=== PATIENT | male | born 1945 | race Caucasian/White ===

== ENCOUNTER 2017-05-08 03:06 | Inpatient (IN) ==
--- NOTE | 2017-05-08 04:36 | Emergency Department Note ---
Arrival - Arrival Chief Complaint: Shortness of Breath Stated Complaint: SOB ED Nursing Triage Note: Patient to ED via EMS as a transfer from [facility] ED. Patient was seen there for c/o SOB for 2 days time. Patient has COPD and has recently tried to quit smoking again, when his s/s worsened. Patient arrives to our ED with a RA sat of 88% and after placing patient in orthopneic position and applying 3L O2 NC, patient sats increased to 97% Mode of Arrival: Stretcher Time Seen by Provider: 05/08/17 03:50 - History of Present Illness HPI Narrative: This is a 71-year-old white male who presents from [facility] emergency department with COPD exacerbation. His initial room air O2 sat was 80%. The patient does not have nasal O2 at home. He has noticed worsening shortness of breath for the past 3 days. The chest x-ray did not show pneumonia. He does have a history of a slightly abnormal echocardiogram with a left ventricular ejection fraction of 45% done in February 2017. He stopped smoking 2 days ago. He was treated with intravenous steroids and multiple albuterol nebulizer treatments. The patient is comfortable at this time. He was accepted in transfer for admission to the hospital for COPD exacerbation. Allergies/Adverse Reactions: Allergies Allergy/AdvReac Type Severity Reaction Status Date / Time codeine Allergy RASH Verified 05/08/17 03:28 NO MRI AdvReac Unknown/Unable Uncoded 05/08/17 03:39 to obtain Review of System - Review of System Constitutional: Absent: fever, night sweats Eyes: Absent: redness, vision change Head/Ears/Nose/Throat: Absent: epistaxis Respiratory: Present: respiratory distress, wheezing Cardiovascular: Present: dyspnea on exertion. Absent: orthopnea, edema Gastrointestinal: Absent: diarrhea, constipation, hematemesis, melena Genitourinary male: Absent: hematuria, discharge Musculoskeletal: Absent: joint swelling, lower back pain Skin: Absent: change in color, change in hair/nails Neurological: Absent: numbness, paresthesias Psychiatric: Absent: suicidal thoughts, homicidal thoughts Endocrine: Absent: heat intolerance, polydipsia, polyuria Hematological/Lymphatic: Absent: easy bruising, lymphadenopathy Allergic/Immunologic: Absent: urticaria, itchy eyes Medical,Surgical,& Family Hx - Medical History Respiratory: History of: Bronchitis, COPD Musculoskeletal: History of: Musculoskeletal Problems (bone spurs) Other: History of: Miscellaneous Medical Problems (NO MRI r/t hammer piece in RLQ ABD) - Social History Smoking Status: Current every day smoker Frequency of Alcohol Use: None Type of Drug Use: None Exam Vital Signs: Vital Signs Temperature 98.6 F 05/08/17 03:06 Pulse Rate 99 H 05/08/17 03:06 Respiratory Rate 28 H 05/08/17 03:06 Blood Pressure 129/68 05/08/17 03:06 O2 Sat by Pulse Oximetry 89 L 05/08/17 03:06 - General Exam limited due to: ALOC - Head Head exam: Present: atraumatic - Eye Eye exam: Present: PERRL, EOMI - ENT ENT exam: Present: normal exam, normal oropharynx - Neck Neck exam: Present: normal inspection, full ROM - Chest Chest inspection: Present: normal inspection, symmetric chest wall rise - Respiratory Respiratory exam: Present: normal lung sounds bilaterally, prolonged expiratory phase, wheezes - Cardiovascular Cardiovascular exam: Present: regular rate, normal rhythm - Abdominal Exam Abdominal exam: Present: soft, normal bowel sounds - Extremities Exam Extremities exam: Present: normal inspection, full ROM - Back Exam Back exam: Present: normal inspection, full ROM - Neurological Exam Neurological exam: Present: alert, oriented X3 - Psychiatric Psychiatric exam: Present: normal affect, normal mood - Skin Skin exam: Present: warm, dry Course Course Narrative: The patient was sent from [facility] emergency department for COPD exacerbation. He is considerably better at this time but he has been accepted already for admission to the hospital and has an O2 requirement. The patient will be admitted by the hospitalist service with whom the case was discussed. Disposition Clinical Impression: COPD exacerbation Disposition: Still a Patient Additional Instructions: The patient was accepted from [facility] emergency department for COPD exacerbation. His original presenting O2 sat was 88%. He does not have oxygen at home. He stopped smoking 2 days ago. The patient's chest x-ray showed no infiltrate. He was treated with intravenous corticosteroids and albuterol. His vital signs are now stable. His O2 sat is 97% on 2 L nasal. He is breathing comfortably with a respiratory rate of 18. The case was discussed with the hospitalist who agreed to admit the patient.
--- NOTE | 2017-05-08 05:36 | Hospitalist History & Physical ---
Assessment and Plan - Time spent with patient Time spent with patient: Greater than 30 minutes Time spent discussing smoking cessation with patient: 3 to 10 minutes (1) COPD exacerbation Status: Acute Assessment and plan: Will consult Pulm Will start on breathing treatments and steroids Afebrile this time Continue oxygen at this time. Current Visit: Yes History of Present Illness Chief complaint: shortness of breath History of present illness: Called to the ER for Mr. Stark who is a 71 year old male who presented to [facility] Emergency Dept in [place], [place] with complaints of shortness of breath that started yesterday and continued to get worse today. Patient states he got home from approximately 2029 and took two breathing treatments. He attempted to lie down to sleep but was not able to breath while lying down. Patient states he has been coughing up clear sputum that is not common for him. He states he entire chest is sore from coughing but denies fever, n/v/d. He does not wear home O2 and attempted to quit smoking two days ago. 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 Chin 2 days ago and received a steroid shot and started on Medrol Dose Pack. Patient will be admitted into observation due to no breathing treatments in ER. Can upgrade to inpatient if needed. He will receive Albuterol breathing treatments q4 hours and Solumedrol 125mg IV BID. We will consult pulmonary to follow. Lab work and CXR pending. Patient has a history of COPD with PFT's performed 2 days ago, bone spurs to right heel, hemorrhoid surgery x2, and removal of metal in abdomen. Allergies Allergy/AdvReac Type Severity Reaction Status Date / Time codeine Allergy RASH Verified 05/08/17 03:28 NO MRI AdvReac Unknown/Unable Uncoded 05/08/17 03:39 to obtain Medical,Surgical,& Family Hx - Medical History Respiratory: History of: Bronchitis, COPD Musculoskeletal: History of: Musculoskeletal Problems (bone spurs) Other: History of: Miscellaneous Medical Problems (NO MRI r/t hammer piece in RLQ ABD) - Family History Family History: noncontributory (Patient was raised in an [place]ph[place].) - Social History Smoking Status: Current every day smoker Frequency of Alcohol Use: None Type of Drug Use: None - Constitutional Constitutional: Absent: anorexia, chills, fever(s), weakness - EENT Eyes: Absent: blurry vision - Cardiovascular Cardiovascular: Absent: chest pain at rest, chest pain with activity, diaphoresis, dyspnea, edema - Respiratory Respiratory: Present: cough, dyspnea. Absent: change in phlegm color - Gastrointestinal Gastrointestinal: Absent: abdominal pain, constipation, diarrhea, nausea, vomiting - Genitourinary Genitourinary: Absent: difficulty urinating Exam - Constitutional Vitals: Period Temp Pulse Resp BP Sys/Almanza Pulse Ox Last 24 Hr 98.6 F-98.6 F 82-99 16-28 122-129/60-68 89-98 General appearance: mild distress, under weight - Head Head exam: Present: normal inspection, normocephalic - Eye Eye exam: Present: EOMI Pupils: Present: JUAN, normal accommodation - ENT ENT exam: Present: normal external ear exam - Neck Neck exam: Present: normal inspection - Respiratory Respiratory exam: Present: chest wall tenderness, rhonchi (to bilateral lower bases. Respirations even and non-labored. Symmetrical rise and fall of chest noted ). Absent: accessory muscle use, decreased breath sounds - Cardiovascular Cardiovascular exam: Present: regular rate and rhythm - GI/Abdominal GI/Abdominal exam: Present: normal bowel sounds, soft. Absent: firm, tenderness - Extremities Exam Extremities exam: Present: normal capillary refill, full ROM, other (multiple bruises) - Back Exam Back exam: Present: normal inspection - Neurological Exam Neurological exam: Present: alert, oriented X3 (Respirations even and non- labored. Symmetrical rise and fall of chest noted. ) - Psychiatric Psychiatric exam: Present: normal affect - Skin Skin exam: Present: normal color, warm, dry
[2017-05-08] MEDS ORDERED: methylPREDNISolone SOD SUC 125 MG/2 ML VIAL IV SCH (06:00)
[2017-05-08] MEDS ORDERED: NICOTINE 21 MG/24 HR PATCH TRANSDERM PRN (06:05)
[2017-05-08] MEDS ORDERED: ONDANSETRON 4 MG/2 ML VIAL IV PRN (06:05)
[2017-05-08] MEDS ORDERED: ACETAMINOPHEN 325 MG TABLET PO PRN (06:05)
[2017-05-08] MEDS ORDERED: SODIUM CHLORIDE 0.9% 1,000 ML IV SCH (06:05)
[2017-05-08] MEDS ORDERED: AZITHROMYCIN 250 MG TABLET PO ONE (06:49)
[2017-05-08] MEDS ORDERED: ALBUTEROL/IPRATROPIUM 3 ML NEB RESP TX SCH (07:00)
[2017-05-08 07:16] LABS: Basophils % 0.1 % (0.0-0.8); Hematocrit 47.5 VOL% (42.0-52.0); Hemoglobin 16.3 GM/DL (14.0-18.0); Immature Granulocytes % 0.4 %; Immature Granulocytes Absolute 0.04 #; Lymphocytes # 0.4 10*3/uL (1.4-4.0); Lymphocytes % 4.3 % (21.2-54.2); Mean Corpuscular HGB Conc 34.3 GM/DL (32-36); Mean Corpuscular Hemoglobin 33 PG (27-34); Mean Corpuscular Volume 95.4 FL (87-102); Mean Platelet Volume 9.6 FL (9.6-12.0); Monocytes # 0.1 10*3/uL (0.11-0.8); Monocytes % 1.5 % (1.7-12.7); Neutrophils # 8.3 10*3/uL (1.4-7.4); Neutrophils % 93.7 % (38.7-73.9); Platelet Count 174 T/CUMM (130-400); Red Blood Count 4.98 MC/CUMM (3.8-5.5); White Blood Count 8.9 T/CUMM (4-12)
[2017-05-08 07:44] LABS: Band Neutrophils 2 % (0-10); Hypochromasia 1+; Lymphocytes 4 % (20-55); Segmented Neutrophils 92 % (50-85); Total Cells Counted 100
[2017-05-08 07:45] LABS: Platelet Estimate Adequate
[2017-05-08 07:55] LABS: Albumin 4.1 G/DL (3.4-5.0); Bilirubin,Total 1.3 MG/DL (0.2-1.0); Calcium 9.3 MG/DL (8.5-10.1); Osmolality,Calculated 282.7 MOS/KG (273-304); Potassium 4.3 MMOL/L (3.5-5.1); Total Protein 7.1 G/DL (6.4-8.3)
[2017-05-08] MEDS: cefTRIAXone 1,000 MG in SODIUM CHLORIDE 0.9% 100 ML IV SCH (10:38)
[2017-05-08] MEDS: PANTOPRAZOLE 40 MG TABLET PO SCH (10:38)
[2017-05-08] MEDS: ENOXAPARIN 40 MG/0.4 ML SYRINGE SUBCUT SCH (10:45)
--- NOTE | 2017-05-08 10:51 | Pulmonology Consult Note ---
Assessment and Plan (1) Smoker Status: Acute Assessment and plan: We will try nicotine patch and he certainly needs to quit smoking. Current Visit: Yes (2) COPD exacerbation Status: Acute Assessment and plan: Patient looks like he has fairly significant COPD and will continue with vigorous treatment. Current Visit: Yes History of Present Illness Chief complaint: Shortness of breath History of present illness: Mr. Stark is a 71 year old white male that was sent over from [facility] in [place] because of worsening shortness of breath. The patient says he has been having more trouble last several days. He apparently has a long history of having COPD and is followed by Dr. Chin. He says he uses an inhaler at home. He does not have oxygen. He is a lifelong smoker but he says he quit a week ago. He says he is mainly just been short of breath but does cough up some sputum. He is not having any fever or chest pain. He says a couple days ago he got a steroid injection and a Medrol Dosepak at Dr. Chin's office. He said his breathing was getting worse so he came in. Allergies Allergy/AdvReac Type Severity Reaction Status Date / Time codeine Allergy RASH Verified 05/08/17 03:28 NO MRI AdvReac Unknown/Unable Uncoded 05/08/17 03:39 to obtain - Constitutional Constitutional: Present: weakness. Absent: chills, fever(s) - EENT Eyes: Absent: loss of vision Ears: Absent: decreased hearing Nose, mouth and throat: Absent: dysphagia, headache(s), sinus pressure - Cardiovascular Cardiovascular: Present: dyspnea. Absent: chest pain at rest, edema, orthopnea - Respiratory Respiratory: Present: cough, dyspnea, wheezing, change in phlegm color. Absent : hemoptysis - Gastrointestinal Gastrointestinal: Absent: abdominal pain, change in bowel habits, dysphagia, nausea, vomiting - Genitourinary Genitourinary: Absent: difficulty urinating, dysuria, urinary frequency - Musculoskeletal Musculoskeletal: Absent: arthralgias, myalgias - Neurological Neurological: Absent: abnormal speech, focal weakness, paresthesias - Psychiatric Psychiatric: Present: anxiety Exam (Pulmonay) H&P - Constitutional Vitals: Period Temp Pulse Resp BP Sys/Almanza Pulse Ox Last 24 Hr 97.3 F-98.6 F 82-99 16-28 122-137/60-78 89-98 General appearance: mild distress (He is quite short of breath at rest.), under weight - Head Head exam: Present: normal inspection, normocephalic - Eye Eye exam: Present: EOMI. Absent: scleral icterus Pupils: Present: JUAN - ENT ENT exam: Present: normal exam - Neck Neck exam: Present: normal inspection. Absent: lymphadenopathy, thyromegaly - Respiratory Respiratory exam: Present: decreased breath sounds, prolonged expiratory phase, wheezes - Cardiovascular Cardiovascular exam: Present: regular rate and rhythm. Absent: gallop, systolic murmur - GI/Abdominal GI/Abdominal exam: Present: normal bowel sounds, soft. Absent: distended, organomegaly, tenderness - Extremities Exam Extremities exam: Present: other (There is no clubbing). Absent: calf tenderness, edema - Neurological Exam Neurological exam: Present: alert, oriented X3, CN II-XII intact - Psychiatric Psychiatric exam: Present: anxious - Skin Skin exam: Present: warm, dry Medical,Surgical,& Family Hx - Medical History Respiratory: History of: Bronchitis, COPD Gastrointestinal: History of: Hemorrhoids Musculoskeletal: History of: Back/Neck Problems, Musculoskeletal Problems (bone spurs) Other: History of: Miscellaneous Medical Problems (NO MRI r/t hammer piece in RLQ ABD) - Surgical History Thoracic Surgeries: Patient denies;: Organ Transplant Neurologic Surgeries: Patient denies: Neurologic Surgery HEENT Surgeries: Patient denies: Eye Surgery, Thyroid Surgery, Tonsilectomy & Adenoidectomy Abdominal Surgeries: Patient denies: Abdominal Surgery - Social History Smoking Status: Current every day smoker Frequency of Alcohol Use: None Type of Drug Use: None Results - Labs CBC & BMP: 05/08/17 06:48 05/08/17 06:49 - Diagnostic Findings Procedure: Chest x-ray: image reviewed by me, report reviewed by me (Chest x- ray shows severe COPD changes but no infiltrates.)
[2017-05-08] MEDS: ALBUTEROL/IPRATROPIUM 3 ML NEB RESP TX SCH ×4 (11:18→23:30)
[2017-05-08] MEDS: NICOTINE 21 MG/24 HR PATCH TRANSDERM SCH (11:44)
[2017-05-08] MEDS: methylPREDNISolone SOD SUC 40 MG/1 ML VIAL IV SCH ×3 (11:49→22:55)
[2017-05-08] MEDS: buPROPion SR 150 MG TABLET PO SCH (11:49)
--- NOTE | 2017-05-08 12:23 | Event Note ---
71-year-old white male with history of tobacco abuse and COPD admitted by the hospitalist service on 05/08/2017 with COPD exacerbation. He has been started on breathing treatments, steroids, and IV antibiotics. Dr. Brambila has been consulted for Dr. Chin. Patient continues to be extremely short of breath especially when oxygen is removed. Will consult social workers for need for home oxygen. Patient also started on nicotine patch and Wellbutrin for tobacco cessation. Patient is eating and drinking well so will DC IV fluids and INT IV. Dr. Patel will see and examine patient and further recommendations to follow.
--- NOTE | 2017-05-08 14:28 | XRay Report ---
History: Shortness of breath Date: 05/08/2017 Study: Chest x-ray PA and lateral Comparison exam: No remote chest x-ray available for comparison The cardiac silhouette is not enlarged. There is no mediastinal mass. The pulmonary vasculature is not engorged. The lungs are slightly hyperexpanded as can be seen with COPD. There are scattered emphysematous changes. There is no gross pleural effusion. Osseous structures are unchanged. There is osteopenia and mild thoracic spondylosis. Impression: The lungs are slightly hyperexpanded as can be seen with COPD. Emphysematous changes. No acute process otherwise PROCEDURE INTERPRETED AT [facility] DEPARTMENT OF RADIOLOGY Final Report Signed by: Dr. Dorota Toure
[2017-05-08] MEDS: CELECOXIB 200 MG CAPSULE PO SCH (21:32)
[2017-05-08] MEDS: THEOPHYLLINE ER (24 HR) 300 MG CAPSULE PO SCH (21:32)
[2017-05-08] MEDS: MONTELUKAST 10 MG TABLET PO SCH (21:33)
[2017-05-09] MEDS: ALBUTEROL/IPRATROPIUM 3 ML NEB RESP TX SCH ×6 (03:58→23:47)
[2017-05-09] MEDS: methylPREDNISolone SOD SUC 40 MG/1 ML VIAL IV SCH ×4 (04:47→22:57)
[2017-05-09] MEDS: cefTRIAXone 1,000 MG in SODIUM CHLORIDE 0.9% 100 ML IV SCH (06:04)
[2017-05-09] MEDS: TAMSULOSIN 0.4 MG CAPSULE PO SCH (09:56)
[2017-05-09] MEDS: ENOXAPARIN 40 MG/0.4 ML SYRINGE SUBCUT SCH (09:56)
[2017-05-09] MEDS: CELECOXIB 200 MG CAPSULE PO SCH ×2 (09:56→20:34)
[2017-05-09] MEDS: PRAMIPEXOLE 0.25 MG TABLET PO SCH (09:57)
[2017-05-09] MEDS: NICOTINE 21 MG/24 HR PATCH TRANSDERM SCH (09:58)
[2017-05-09] MEDS: buPROPion SR 150 MG TABLET PO SCH (09:58)
[2017-05-09] MEDS: PANTOPRAZOLE 40 MG TABLET PO SCH (09:58)
[2017-05-09] MEDS: AZITHROMYCIN 250 MG TABLET PO SCH (09:59)
--- NOTE | 2017-05-09 10:25 | Pulmonology Progress Note ---
Pulmonary - PN: Subj Interval history: The patient is a 71-year-old white man that has very severe COPD. He basically has been smoking up until this hospitalization. He has been getting respiratory therapy and steroids and says he feels a little better today. He is comfortable on oxygen and he feels like his breathing is better today. He is eating well and tolerating his medicines . Overall he seems to be comfortable today. Exam (Progress Note) - Constitutional Vitals: Period Temp Pulse Resp BP Sys/Almanza Pulse Ox Last 24 Hr 97.2 F-98.1 F 70-109 16-22 116-139/63-75 90-100 Exam: General appearance: no distress (He is sitting up and looks more comfortable and appears stable.), under weight - Head Head exam: Present: normal inspection, normocephalic - Eye Eye exam: Present: EOMI. Absent: scleral icterus Pupils: Present: JUAN - ENT ENT exam: Present: normal exam - Neck Neck exam: Present: normal inspection. Absent: lymphadenopathy, thyromegaly - Respiratory Respiratory exam: Present: He does have very distant breath sounds with prolonged expiration but not much wheezing at present. - Cardiovascular Cardiovascular exam: Present: regular rate and rhythm. Absent: gallop, systolic murmur - GI/Abdominal GI/Abdominal exam: Present: normal bowel sounds, soft. Absent: distended, organomegaly, tenderness - Extremities Exam Extremities exam: Present: other (There is no clubbing). Absent: calf tenderness, edema - Neurological Exam Neurological exam: Present: alert, oriented X3, CN II-XII intact - Psychiatric Psychiatric exam: Present: anxious - Skin Skin exam: Present: warm, dry Results - Labs CBC & BMP: 05/08/17 06:48 05/08/17 06:49 Assessment and Plan (1) Smoker Status: Acute Assessment and plan: We will try nicotine patch and he certainly needs to quit smoking. He is trying a nicotine patch. Current Visit: Yes (2) COPD exacerbation Status: Acute Assessment and plan: Patient looks like he has fairly significant COPD and will continue with vigorous treatment. He is responding fairly well and looks like he is breathing a little better today. Current Visit: Yes
--- NOTE | 2017-05-09 11:36 | Hospitalist Progress Note ---
Assessment and Plan - Time spent with patient Time spent with patient: Less than 30 minutes (1) COPD exacerbation Status: Acute Assessment and plan: 71-year-old white male with history of tobacco abuse admitted by the hospitalist service on 05/08/2017 with COPD exacerbation. Patient has been started on nicotine patch and Wellbutrin to help with his tobacco cessation. He has been receiving steroids and breathing treatments. He feels mildly better today. I am having the nurses check his O2 sats on room air to see if he qualifies for home oxygen upon discharge. Continue with current treatment another day or 2 before DC. Discussed with Dr. Patel. Current Visit: Yes (2) Smoker Status: Acute Current Visit: Yes Hospitalist: Subjective Interval history: Patient states he feels mildly better today. He still gets short of breath easy with activity. They have not checked his O2 sats on room air yet to see if he will qualify for home oxygen. Exam - Constitutional Vitals: Period Temp Pulse Resp BP Sys/Almanza Pulse Ox Last 24 Hr 97.2 F-98.1 F 70-109 16-22 116-139/63-75 90-100 Exam: 71-year-old white male, no acute distress, alert and oriented Chest clear CV regular rate and rhythm Abdomen soft and nontender Extremities no edema Results - Labs CBC & BMP: 05/08/17 06:48 05/08/17 06:49 Lab Results: I have reviewed the past 24 hour labs
[2017-05-09] MEDS: THEOPHYLLINE ER (24 HR) 300 MG CAPSULE PO SCH (20:33)
[2017-05-09] MEDS: MONTELUKAST 10 MG TABLET PO SCH (20:34)
[2017-05-10] MEDS: ALBUTEROL/IPRATROPIUM 3 ML NEB RESP TX SCH ×6 (03:47→23:20)
[2017-05-10] MEDS: methylPREDNISolone SOD SUC 40 MG/1 ML VIAL IV SCH ×4 (04:08→22:37)
[2017-05-10] MEDS: cefTRIAXone 1,000 MG in SODIUM CHLORIDE 0.9% 100 ML IV SCH (06:03)
--- NOTE | 2017-05-10 09:23 | Pulmonology Progress Note ---
Pulmonary - PN: Subj Interval history: The patient is a 71-year-old white man that has very severe COPD. He basically has been smoking up until this hospitalization. He has been getting respiratory therapy and steroids and says he feels a little better today. He is comfortable on oxygen and he feels like his breathing is better today. He still has a difficult time clearing secretions. He feels like he is breathing better however. He says he wants to go home soon. Exam (Progress Note) - Constitutional Vitals: Period Temp Pulse Resp BP Sys/Almanza Pulse Ox Last 24 Hr 97.6 F-98.3 F 60-107 16-20 106-144/57-79 87-99 Exam: General appearance: no distress (He is sitting up and looks more comfortable and appears stable. He is moving around a little better.), under weight - Head Head exam: Present: normal inspection, normocephalic - Eye Eye exam: Present: EOMI. Absent: scleral icterus Pupils: Present: JUAN - ENT ENT exam: Present: normal exam - Neck Neck exam: Present: normal inspection. Absent: lymphadenopathy, thyromegaly - Respiratory Respiratory exam: Present: He does have very distant breath sounds with prolonged expiration but he is moving air a little better and starting to have a little bit more wheeze. He does seem to be opening up better. - Cardiovascular Cardiovascular exam: Present: regular rate and rhythm. Absent: gallop, systolic murmur - GI/Abdominal GI/Abdominal exam: Present: normal bowel sounds, soft. Absent: distended, organomegaly, tenderness - Extremities Exam Extremities exam: Present: other (There is no clubbing). Absent: calf tenderness, edema - Neurological Exam Neurological exam: Present: alert, oriented X3, CN II-XII intact - Psychiatric Psychiatric exam: Present: anxious - Skin Skin exam: Present: warm, dry Results - Labs CBC & BMP: 05/08/17 06:48 05/08/17 06:49 Assessment and Plan (1) Smoker Status: Acute Assessment and plan: We will try nicotine patch and he certainly needs to quit smoking. He is trying a nicotine patch. Current Visit: Yes (2) COPD exacerbation Status: Acute Assessment and plan: Patient looks like he has fairly significant COPD and will continue with vigorous treatment. He is responding fairly well and looks like he is breathing a little better today. He still has significant airflow obstruction and will get a little better with time. He wants to go home soon. He can probably go any time he feels comfortable. He will need steroids and bronchodilator therapy at home. Current Visit: Yes
[2017-05-10] MEDS: PRAMIPEXOLE 0.25 MG TABLET PO SCH (09:29)
[2017-05-10] MEDS: PANTOPRAZOLE 40 MG TABLET PO SCH (09:29)
[2017-05-10] MEDS: buPROPion SR 150 MG TABLET PO SCH (09:29)
[2017-05-10] MEDS: NICOTINE 21 MG/24 HR PATCH TRANSDERM SCH (09:29)
[2017-05-10] MEDS: ENOXAPARIN 40 MG/0.4 ML SYRINGE SUBCUT SCH (09:29)
[2017-05-10] MEDS: AZITHROMYCIN 250 MG TABLET PO SCH (09:29)
[2017-05-10] MEDS: CELECOXIB 200 MG CAPSULE PO SCH ×2 (09:29→20:43)
[2017-05-10] MEDS: TAMSULOSIN 0.4 MG CAPSULE PO SCH (09:29)
--- NOTE | 2017-05-10 14:53 | Hospitalist Progress Note ---
Hospitalist: Subjective Interval history: 71 yo male with severe COPD, he has dyspnea on exertion. Exam - Constitutional Vitals: Period Temp Pulse Resp BP Sys/Almanza Pulse Ox Last 24 Hr 97.6 F-98.3 F 60-107 16-20 122-144/67-92 91-99 Exam: General: [No Acute Distress] HEENT: [Normocephalic, atraumatic, Extra ocular movements intact] Neck: [Supple, No JVD] Chest: [Decreased breath sounds b/L] CV: [S1 + S2 audible without murmur, gallop or rub] Abd: [soft, NT, Non-distended, BS +] Ext: [No edema] Skin: [No purpura, bruising or rash] Rheumatologic: [No Joint deformities] Neurologic: [Strength 5/5 all extremities, no gross sensory deficits] Results - Labs CBC & BMP: 05/08/17 06:48 05/08/17 06:49 - Impressions Assessment and Plan (1) Acute on chronic COPD exacerbation due to acute bronchitis Status: Acute Assessment and plan: He is slowly improving with bronchodilators and steroids. He is doing quite well on nicotine patch and Wellbutrin for smoking cessation. (2) Acute on chronic hypoxemic respiratory failure Status: Acute Current Visit: Yes Continue oxygen, and so stroke is arranging home O2
[2017-05-10] MEDS: THEOPHYLLINE ER (24 HR) 300 MG CAPSULE PO SCH (20:43)
[2017-05-10] MEDS: MONTELUKAST 10 MG TABLET PO SCH (20:43)
[2017-05-11] MEDS: ALBUTEROL/IPRATROPIUM 3 ML NEB RESP TX SCH ×2 (03:20→07:35)
[2017-05-11] MEDS: methylPREDNISolone SOD SUC 40 MG/1 ML VIAL IV SCH (05:59)
[2017-05-11] MEDS: cefTRIAXone 1,000 MG in SODIUM CHLORIDE 0.9% 100 ML IV SCH (06:01)
[2017-05-11] MEDS: NICOTINE 21 MG/24 HR PATCH TRANSDERM SCH (08:49)
[2017-05-11] MEDS: CELECOXIB 200 MG CAPSULE PO SCH (09:03)
[2017-05-11] MEDS: AZITHROMYCIN 250 MG TABLET PO SCH (09:03)
[2017-05-11] MEDS: TAMSULOSIN 0.4 MG CAPSULE PO SCH (09:03)
[2017-05-11] MEDS: buPROPion SR 150 MG TABLET PO SCH (09:03)
[2017-05-11] MEDS: PRAMIPEXOLE 0.25 MG TABLET PO SCH (09:03)
[2017-05-11] MEDS: ENOXAPARIN 40 MG/0.4 ML SYRINGE SUBCUT SCH (09:03)
[2017-05-11] MEDS: PANTOPRAZOLE 40 MG TABLET PO SCH (09:03)
[2017-05-11] MEDS ORDERED: predniSONE 20 MG TABLET PO SCH (09:30)
--- NOTE | 2017-05-11 10:44 | Discharge Summary ---
Hospital Course - Hospital Course Hospital Course: 71 year old male who presented to [facility] Emergency Dept in [place], [place] with complaints of shortness of breath that had continued to get worse. Patient does have severe COPD and follows with Dr. Chin. The patient was still smoking up until a few days prior to admission as he was feeling very sick. He has also had acute on chronic hypoxemic respiratory failure, but has not been on home oxygen. Dr. Brambila from pulmonology service was following him. We extensively counseled this patient on quitting smoking and he agreed to try a nicotine patch as well as Wellbutrin. He has tolerated both quite well and tells me that he has no further nicotine craving. 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 His breathing has improved to the point that he feels that he can manage at home. He is being discharged home in improved and stable condition. Discharge instructions and prescriptions were provided. - Time spent with patient Time with patient DS: Less than 30 minutes Diagnosis - Discharge Diagnosis (1) COPD exacerbation Status: Resolved Discharge Plan - Discharge Data Condition at Discharge: Stable Discharge Diet: advance to your usual diet Activity: resume usual activities as tolerated Hygiene: no restrictions Weight Bearing at Discharge: full weight bearing Driving: no restrictions Contact your physician if you experience:: fever over 101, Shortness of breath - Discharge Medications New Nicotine 21 mg/24 Hr Patch [Nicoderm CQ 21 mg/24 hr Patch] 1 patch TRANSDERM DAILY #30 patch buPROPion SR [Wellbutrin Sr] 150 mg PO DAILY #30 tablet Continue Theophylline ER Cap (24 Hr) [Karlos-24] 300 mg PO BEDTIME Montelukast Tab [Singulair Tab] 10 mg PO BEDTIME Tamsulosin [Flomax] 0.4 mg PO DAILY Pramipexole [Mirapex] 0.25 mg PO DAILY Diclofenac Potassium [Zipsor] 25 mg PO DAILY Celecoxib [Celebrex] 200 mg PO BID predniSONE TAB [PredniSONE] 10 mg PO DAILY #30 - Follow Up or Referral Follow Up: No PCP,. [Physician] - 2 Weeks - Forms/Instructions Exam - Constitutional Vitals: Period Temp Pulse Resp BP Sys/Almanza Pulse Ox Last 24 Hr 96.9 F-98.1 F 60-95 18-20 110-155/60-92 93-100 Exam: General: No Acute Distress HEENT: Normocephalic, atraumatic, Extra ocular movements intact Neck: Supple, No JVD Chest: Decreased breath sounds b/L CV: S1 + S2 audible without murmur, gallop or rub Abd: soft, NT, Non-distended, BS + Ext: No edema Skin: No purpura, bruising or rash Rheumatologic: No Joint deformities Neurologic: Strength 5/5 all extremities, no gross sensory deficits DS: Provider Date of admission: 05/10/17 13:38 Primary care physician: Kamaljit Leger MD Attending physician on admission: Kamlesh Koch MD Consults: 05/08/17 06:05 Consult to Physician [CONS] Routine Comment: COPD Consulting Provider: Hitesh Brambila Person Notified: keshia brambila Consult Notification Comment: saw 05/0905/08/17 12:17 Consult to Case Mgmt/Social Srvs [CONS] Routine Reason for Case Mgmt/Social Srvs: Other Consult Comment: need home oxygen for dc? 05/09/17 13:40 Consult to Case Mgmt/Social Srvs [CONS] Routine Reason for Case Mgmt/Social Srvs: Other Consult Comment: will need home oxygen on dc Discharging clinician: Viridiana Patel MD
--- NOTE | 2017-05-11 11:28 | Pulmonology Progress Note ---
Pulmonary - PN: Subj Interval history: The patient is a 71-year-old white man that has very severe COPD. He basically has been smoking up until this hospitalization. He has been getting respiratory therapy and steroids and says he feels a little better today. He is comfortable on oxygen and he feels like his breathing is better today. He says he had a fairly good night and he feels like his breathing is much better. He is tolerating his treatments fairly well. He wants to go home and take medicines at home. Exam (Progress Note) - Constitutional Vitals: Period Temp Pulse Resp BP Sys/Almanza Pulse Ox Last 24 Hr 96.9 F-98.1 F 60-95 18-20 110-155/60-92 93-100 Exam: General appearance: no distress (He is sitting up and looks more comfortable and appears stable. He does look like he is breathing better today.) - Head Head exam: Present: normal inspection, normocephalic - Eye Eye exam: Present: EOMI. Absent: scleral icterus Pupils: Present: JUAN - ENT ENT exam: Present: normal exam - Neck Neck exam: Present: normal inspection. Absent: lymphadenopathy, thyromegaly - Respiratory Respiratory exam: Present: He does have very distant breath sounds with prolonged expiration but he is moving air better and having less wheezing. - Cardiovascular Cardiovascular exam: Present: regular rate and rhythm. Absent: gallop, systolic murmur - GI/Abdominal GI/Abdominal exam: Present: normal bowel sounds, soft. Absent: distended, organomegaly, tenderness - Extremities Exam Extremities exam: Present: other (There is no clubbing). Absent: calf tenderness, edema - Neurological Exam Neurological exam: Present: alert, oriented X3, CN II-XII intact - Psychiatric Psychiatric exam: Present: anxious - Skin Skin exam: Present: warm, dry Results - Labs CBC & BMP: 05/08/17 06:48 05/08/17 06:49 Assessment and Plan (1) Smoker Status: Acute Assessment and plan: We will try nicotine patch and he certainly needs to quit smoking. He is trying a nicotine patch. Current Visit: Yes (2) COPD exacerbation Status: Resolved Assessment and plan: Patient looks like he has fairly significant COPD and will continue with vigorous treatment. He is responding fairly well and looks like he is breathing a little better today. He still has significant airflow obstruction and will get a little better with time. He will change to oral prednisone and wants to go home. He will continue with bronchodilators at home. He will follow-up with Dr. Chin. Current Visit: Yes Specialty Discharge - Follow Up or Referrals Follow up with: No PCP,. [Physician] - 2 Weeks
[2017-05-11 12:46] VITALS: BP 140/67
== END 2017-05-11 13:55 | disposition home or self-care (01) | DRG 190 ==
LOC: EDBD → EDUNIT# → N.ED 03:06 → INTOOBSV 04:35 → SUATTDRO 04:35 → N.EDINP 04:35 → N.5E 04:53
PROVIDERS: ADMIT Family Medicine; ATTEND Hospitalist